=== PATIENT | female | born 1990 | race Two or more races ===

== ENCOUNTER → 2024-03-21 | Outpatient (CLI) | payer BC, SELFPAY ==
--- NOTE | 2024-03-21 13:30 | XR_ITS ---
Examination: Thyroid sonography complete TECHNIQUE: Grayscale sonographic images thyroid lobes with color flow analysis Exam date and time: March 21, 2024 1327 hours INDICATIONS: Thyroid toxicosis on laboratory examination 2 months ago right neck pain 3 months FINDINGS: Right thyroid 4.3 x 1.6 x 1.7 cm Left thyroid 3.8 x 1.6 x 1.6 cm Left thyroid nodule contiguous with the lower pole, 8 x 5 x 6 mm IMPRESSION: Findings most consistent with left parathyroid adenoma Recommend sestamibi nuclear medicine parathyroid scan follow-up
== END | disposition home or self-care (01) ==
PROVIDERS: PCP Nurse Practitioner; Referring Provider Nurse Practitioner; Visit Provider Nurse Practitioner
DX: E05.90 Thyrotoxicosis, unspecified without thyrotoxic crisis or storm (principal)
CPT/HCPCS: 76536

== ENCOUNTER 2024-08-09 07:50 | Outpatient (RCR) | payer BC, SELFPAY ==
[2024-08-09 08:28] LABS: HCG Qualitative,Urine Negative
--- NOTE | 2024-08-09 08:30 | XR_ITS ---
Examination: Nuclear medicine parathyroid scan TECHNIQUE: Intravenous ministration 25.6 mCi technetium 99m sestamibi with anterior pinhole and chest images obtained before hours Exam date and time: August [id number] hours INDICATIONS: Difficulty swallowing 6 months FINDINGS: Normal salivary gland activity Normal thyroid activity No findings positive for parathyroid adenoma IMPRESSION: No findings positive for parathyroid adenoma
== END 2024-08-14 23:59 | disposition home or self-care (01) ==
LOC: SNUC 07:50
PROVIDERS: Referring Provider Nurse Practitioner; Visit Provider Nurse Practitioner
DX: D36.9 Benign neoplasm, unspecified site (principal); Z32.00 Encounter for pregnancy test, result unknown
CPT/HCPCS: 78070; 81025; A9500

== ENCOUNTER → 2024-10-30 | Outpatient (CLI) | payer BC, SELFPAY ==
--- NOTE | 2024-10-30 | XR_ITS ---
Examination: Abdomen 2 views TECHNIQUE: AP upright AP supine abdomen 2 views Date and time: October 30, 2024 1223 hours INDICATIONS: Abdominal pain and constipation beginning 2 weeks ago. FINDINGS: Moderate stool throughout the colon. No obstruction. No free air. Surgical clips upper right abdomen IMPRESSION: Moderate stool throughout the colon
== END | disposition home or self-care (01) ==
PROVIDERS: PCP Nurse Practitioner; Referring Provider Nurse Practitioner; Visit Provider Nurse Practitioner
DX: K59.00 Constipation, unspecified (principal)
CPT/HCPCS: 74019